=== PATIENT | male | born 1955 | race Caucasian/White ===

== ENCOUNTER → 2017-12-21 10:08 | Outpatient (CLI) | payer OTHER, SELFPAY ==
[2017-12-21 12:22] LABS: Protein (Total) Urine Random 7 mg/dL (0-12); Protein Creatinine Ratio Urine 0.03 GRAM/24H
[2017-12-22 12:51] LABS: Parathyroid Hormone Int 25 pg/mL (14-64)
== END ==
PROVIDERS: Family Provider Family Medicine; PCP Family Medicine; Visit Provider Student in an Organized Health Care Education/Training Program
DX: D64.9 Anemia, unspecified (principal); N25.81 Secondary hyperparathyroidism of renal origin; R80.9 Proteinuria, unspecified
CPT/HCPCS: 36415; 82570; 83970; 84156; 85014; 85018

== ENCOUNTER 2018-03-24 10:26 | Emergency (ER) | payer OTHER, SELFPAY ==
[2018-03-24 10:31] VITALS: BP 170/98; PULSE 71; RESP 20; TEMP 36.5; O2SAT 100; BMI 31.9
--- NOTE | 2018-03-24 11:04 | ED_ITS ---
HPI - Back Pain/Injury General Chief Complaint: Back Pain/Injury Stated Complaint: POSSIBLE BULGING DISC Time Seen by Provider: 03/24/18 11:04 Source: patient and family Mode of arrival: ambulatory Limitations: no limitations History of Present Illness HPI Narrative: Patient states he did some lifting and twisting several days ago , and that his right lower back has become increasingly painful since. Patient states it hurts to stand up and also to sit down. He states the best position is if he is lying on his stomach, but that also still hurts. Patient denies any distinct injury otherwise. He has a longstanding history of chronic low back pain, and had MRI some years ago, but does not know what the results were. He is a patient Dr. Tiffany Hendrix. Patient denies fevers; he denies urinary or fecal retention or incontinence. MD Complaint: back pain Onset (ago): day(s) Duration: constant Similar Symptoms Previously: Yes Location: lumbar spine ( Right sciatic area and above) Severity: moderate Quality: sharp and aching Radiation: right leg Severity scale (1-10): 10 Relieving factors: none Exacerbating factors: sitting upright and walking Context: turning/twisting ( pain came up over the couple of days afterward) Associated symptoms: numbness ( patient complains of tingling in the right foot , but otherwise no associated symptoms.) Treatments prior to arrival: other ( None) Related Data Home Medications Medication Instructions Recorded Confirmed aspirin 81 mg PO DAILY #0 12/27/10 03/24/18 multivitamin 1 tab PO QDAY #0 12/27/10 03/24/18 cinnamon bark 1 dose PO DIRECTED #0 08/03/17 03/24/18 glimepiride 2 mg tablet 4 mg PO QAM 12/15/17 03/24/18 gabapentin 300 mg capsule 300 mg PO DAILY cap 12/30/17 03/24/18 metoprolol tartrate 100 mg PO BID 03/24/18 03/24/18 verapamil 2 tab PO QDAY 03/24/18 03/24/18 Previous Rx's Medication Instructions Recorded metformin [Glucophage] 1,000 mg PO QDAY #90 tab 08/13/17 hydrochlorothiazide 25 mg tablet 25 mg PO QDAY #90 tab 12/15/17 clonidine HCl 0.1 mg tablet 0.1 mg PO BID #60 tab 01/22/18 insulin glargine (U-100) 100 15 unit SUBCUT HS #15 ml 03/22/18 unit/mL (3 mL) subcutaneous pen cyclobenzaprine 10 mg PO TID PRN #10 tab 03/24/18 hydrocodone-acetaminophen 2 tab PO Q6-8H PRN #14 tab 03/24/18 Allergies Allergy/AdvReac Type Severity Reaction Status Date / Time No Known Drug Allergies Allergy Verified 03/24/18 12:01 Review of Systems Review of Systems All systems reviewed & are unremarkable except as noted in HPI and below Constitutional Denies chills, Denies fever(s), Denies lethargy and Denies weakness Eyes Denies change in vision, Denies eye discharge, Denies irritation and Denies loss of vision ENT Ears, Nose, Mouth, and Throat: Denies change in voice, Denies neck pain and Denies sore throat Cardiovascular Denies chest pain, Denies irregular heart rhythm, Denies lightheadedness, Denies palpitations, Denies dyspnea, Denies dyspnea on exertion and Denies orthopnea Respiratory Denies cough, Denies dyspnea, Denies dyspnea on exertion and Denies wheezing Gastrointestinal Gastrointestinal: Denies abdominal pain, Denies change in bowel habits, Denies diarrhea, Denies nausea and Denies vomiting Genitourinary Denies hematuria, Denies flank pain, Denies urinary incontinence and Denies urinary urgency Musculoskeletal Reports back pain, Denies neck pain and Reports numbness ( tingling right lower extremity) Integumentary/Breasts Denies pruritus, Denies erythema, Denies rash and Denies wounds Neurologic Denies confusion, Denies loss of vision, Reports numbness ( tingling right lower extremity) and Denies weakness Psychiatric Denies anxiety, Denies confusion, Denies depression, Denies homicidal ideation and Denies suicidal ideation Endocrine Denies palpitations Hematologic/Lymphatic Denies easy bruising Allergic/Immunologic Denies wheezing FORMERLY [facility], [facility] Medical History Diabetes (Chronic Unknown) Hyperlipemia (Chronic Unknown) Hypertension (Chronic Unknown) Low back pain (Chronic Unknown) Obstructive sleep apnea (Chronic Unknown) Peripheral neuropathy (Chronic Unknown) Presence of artificial eye (Chronic Unknown) Restless leg syndrome (Chronic Unknown) Colon polyps (Resolved Unknown) Skin cancer (Resolved Unknown) Surgical History No pertinent past surgical history (Acute) Family History Father No problems noted. Mother No problems noted. Social History Smoking Status: Former smoker Tobacco: How many years used: 30 alcohol intake: never substance use type: does not use Exam Initial Vital Signs Initial Vital Signs: Vital Signs Temperature 97.7 F 03/24/18 10:31 Pulse Rate 71 03/24/18 10:31 Respiratory Rate 20 03/24/18 10:31 Blood Pressure 170/98 H 03/24/18 10:31 Pulse Oximetry 100 03/24/18 10:31 Const General: cooperative and well developed Nutritional Appearance: well nourished Orientation: alert, awake, oriented x3 and not confused HENMT Head: normocephalic and atraumatic Ears: external ears normal and TM's normal bilaterally Nose: external nose normal and No nasal discharge Face and sinus: sinuses nontender, face symmetric, no sinus tenderness and No dry mucous membranes Mouth: oral mucosae normal and moist mucous membranes Teeth and gingiva: dentition normal Throat: tonsils normal and uvula midline Eyes General: appearance normal, both eyes and all related structures Eyelids: eyelids normal Conjunctivae: conjunctivae normal Sclera: sclerae normal Pupils: PERRL EOM: EOM intact bilaterally Neck Neck: normal visual inspection, trachea midline, No lymphadenopathy, No midline deformity and No JVD Lymphatic: No lymphedema Chest Chest: normal inspection of the chest Resp Effort & Inspection: normal respiratory effort, able to speak in complete sentences, no respiratory distress and no use of accessory muscles Auscultation: clear to auscultation bilaterally, no rales, no rhonchi and no wheezes Cardio Rate: regular rate Rhythm: regular rhythm Heart Sounds: no click, no gallops, no murmurs and no rubs Pulses: normal peripheral pulses GI Inspection: non-distended Palpation: soft, no hepatosplenomegaly, No guarding, No pulsatile mass and No tender Auscultation: normal bowel sounds Back/Spine/Pelvis Back: No CVA tenderness Cervical Spine: cervical ROM normal and No pain with cervical ROM Thoracic/Lumbar Spine: other ( patient has tenderness over his lumbar right paraspinal musculature. No vertebral tenderness or step-off.) Sacroiliac Joints: tender to palpation ( Mild tenderness) right and other Skin General: no rashes or lesions noted, No jaundice and No petechiae Neuro General: alert, oriented x3, gait normal and no focal motor deficits Speech: speech normal Extrem General: full ROM, no clubbing, cyanosis or edema, no pedal edema and no calf tenderness Psych Appearance: well kempt Mental Status: mental status grossly normal Attitude: cooperative Thought Content: normal and suicidality Judgment: judgment good Course Course Narrative: patient was treated symptomatically with IM Toradol and Dilaudid. X-rays of the lumbar spine were performed, and negative, except for L5-S1 DJD. I did discuss with him that most likely, the best diagnostic test would be an MRI, for which he does not meet emergent criteria, but can be ordered through his primary care physician. The patient was found to be feeling better after symptomatic treatment. While in the emergency department, he has telephoned his primary doctor's office, and they are in the process of setting him up for an MRI. We have discussed the usual indications for return. Orders Ordered: ED Orders 03/24/18 11:24 XR lumbar spine 2-3V Stat Discontinued Medications Hydromorphone HCl (Dilaudid) 2 mg IM NOW ONE Stop: 03/24/18 11:09 Last Admin: 03/24/18 11:16 Dose: 2 mg Ketorolac Tromethamine (Toradol) 60 mg IM NOW ONE Stop: 03/24/18 11:09 Last Admin: 03/24/18 11:15 Dose: 60 mg Oxycodone/Acetaminophen (Percocet 5/325) 1 tab PO NOW ONE Stop: 03/24/18 12:50 Last Admin: 03/24/18 12:57 Dose: 1 tab Vital Signs - 8 hr 03/24/18 13:16 Pulse Rate 53 L Respiratory Rate 18 Blood Pressure 156/104 H Pulse Oximetry 98 MDM - Back Pain/Injury Medical Records Attestation: I reviewed the patient's medical records. Imaging Data lumbar spine x-ray series: Attestation: I personally reviewed and interpreted this imaging study as follows: My impression: DJD, L5-S1. Radiologist's impression: PROCEDURE: XR LUMBAR SPINE 2-3V INDICATIONS: pain/injury TECHNIQUE: 3 views of the lumbar spine were acquired. COMPARISON: [facility], CR, L-SPINE 2-3 VIEWS, 03/29/2015, 10:43. FINDINGS: Bones: 5 [id number] vertebrae are present. There is normal bony alignment. No vertebral body compression fractures. No suspicious bony lesions. Mild foraminal narrowing at L5-S1, slightly progressive. Soft tissues: Overlying bowel gas pattern is normal. No suspicious soft tissue calcifications. IMPRESSION: Slowly progressive degenerative change at L5-S1 as above. Dictated by: Alejandra Traylor M.D. on 03/24/2018 at 11:09 Approved by: Alejandra Traylor M.D. on 03/24/2018 at 11:19 Discharge Plan Departure Patient Disposition: Home Clinical Impression: Back pain of lumbar region with sciatica, Degenerative joint disease (DJD) of lumbar spine Discharge Date/Time: 03/24/18 13:17 Interventions: ED Discharge Assessment Last Done: 03/24/18 13:16 Instructions: DI for Back Pain With Sciatica Prescriptions: New cyclobenzaprine 10 mg tablet 10 mg PO TID PRN (Reason: muscle spasm) Qty: 10 RF: 0 hydrocodone-acetaminophen 5-325 mg tablet 2 tab PO Q6-8H PRN (Reason: pain) Qty: 14 RF: 0 No Action gabapentin [Neurontin] 300 mg capsule 300 mg PO DAILY RF: 0 hydrochlorothiazide 25 mg tablet 25 mg PO QDAY Qty: 90 RF: 3 glimepiride 2 mg tablet 4 mg PO QAM RF: 0 clonidine HCl 0.1 mg tablet 0.1 mg PO BID Qty: 60 RF: 2 multivitamin Tablet 1 tab PO QDAY Qty: 0 RF: 0 aspirin 81 mg Tablet,Delayed Release (Dr/Ec) 81 mg PO DAILY Qty: 0 RF: 0 cinnamon bark 1 dose PO DIRECTED Qty: 0 RF: 0 metformin [Glucophage] 1,000 MG tablet 1,000 mg PO QDAY Qty: 90 RF: 1 insulin glargine [Basaglar KwikPen U-100 Insulin] 100 unit/mL (3 mL) insulin pen 15 unit SUBCUT HS Qty: 15 RF: 0 metoprolol tartrate 100 mg Tablet 100 mg PO BID RF: 0 verapamil 240 mg tablet extended release 2 tab PO QDAY RF: 0 Referrals: SimeonTiffany, [Primary Care Provider] - ( please follow up as soon as possible to schedule and discuss results of MRI.)
[2018-03-24] MEDS: KETOROLAC 60 MG/2 ML VIAL IM (11:15)
[2018-03-24] MEDS: HYDROMORPHONE 2 MG INJ IM (11:16)
--- NOTE | 2018-03-24 11:24 | DI.RAD.S_ITS ---
PROCEDURE: XR LUMBAR SPINE 2-3V INDICATIONS: pain/injury TECHNIQUE: 3 views of the lumbar spine were acquired. COMPARISON: [facility], , -SPINE 2-3 VIEWS, 03/29/2015, 10:43. FINDINGS: Bones: 5 [id number] vertebrae are present. There is normal bony alignment. No vertebral body compression fractures. No suspicious bony lesions. Mild foraminal narrowing at L5-S1, slightly progressive. Soft tissues: Overlying bowel gas pattern is normal. No suspicious soft tissue calcifications. IMPRESSION: Slowly progressive degenerative change at L5-S1 as above. Dictated by: Alejandra Traylor M.D. on 03/24/2018 at 11:09 Approved by: Alejandra Traylor M.D. on 03/24/2018 at 11:19
[2018-03-24 11:39] VITALS: BP 161/105; PULSE 75; RESP 16; O2SAT 98
[2018-03-24] MEDS: OXYCODONE/ACETAMINOPHEN 5/325 TABLET 1 TAB PO (12:57)
[2018-03-24 13:16] VITALS: BP 156/104; PULSE 53; RESP 18; O2SAT 98
== END 2018-03-24 13:17 | disposition home or self-care (01) ==
PROVIDERS: Emergency Provider Emergency Medicine; Family Provider Family Medicine; PCP Family Medicine
DX: M54.40 Lumbago with sciatica, unspecified side (principal); M47.816 Spondylosis without myelopathy or radiculopathy, lumbar region
CPT/HCPCS: 72100; 96372; 99282; 99283; J1170; J1885

== ENCOUNTER → 2018-04-14 14:07 | Outpatient (CLI) | payer OTHER, SELFPAY ==
--- NOTE | 2018-04-14 14:08 | DI.MRI.S_ITS ---
PROCEDURE: MR LUMBAR SPINE WO CON INDICATIONS: lumbar back pain with radiculopathy affecting right lower ex TECHNIQUE: Noncontrast sagittal T1 spin echo and T2 fast echo, sagittal STIR, axial T1 and T2 fast spin echo through the lumbar spine. In cases with scoliosis, additional coronal T2 fast spin echo may be performed. COMPARISON: [facility], CR, XR LUMBAR SPINE 2-3V, 03/24/2018, 11:00. FINDINGS: Image quality: Excellent. Alignment and Curvature: 5 lumbar type vertebral bodies are present by plain film. Alignment is normal. Bone Marrow: Marrow is of normal overall signal. No acute vertebral body compression fractures. Mild reactive signal within the endplates adjacent to the the L3-L4, L4-L5, and L5-S1 intervertebral discs is present. Spinal Cord: Conus medullaris terminates at the T12-L1 disc space level. Visualized cord demonstrates normal signal and size. Paraspinous Soft Tissues: No paravertebral masses. L1-L2: Mild disc I. loss and desiccation. Mild diffuse disc bulge with superimposed broad-based central protrusion. Mild facet and ligamentum flavum hypertrophy bilaterally. Mild canal stenosis. No foraminal stenosis. L2-L3: Mild disc desiccation. Mild bilateral facet hypertrophy. Mild canal stenosis. Mild bilateral foraminal stenosis. L3-L4: Mild disc height loss and desiccation. Mild diffuse disc bulge with superimposed right paracentral disc extrusion which extends inferiorly within the right anterior epidural space. Mild bilateral facet hypertrophy. Mild epidural lipomatosis. There is moderate canal stenosis. There is mild bilateral foraminal stenosis. There is right L4 nerve root impingement within the lateral recess. L4-L5: Mild disc height loss. Moderate disc desiccation. Mild diffuse disc bulge with superimposed right paracentral disc protrusion. Bilateral facet hypertrophy. Moderate canal stenosis. Mild bilateral foraminal stenosis. L5-S1: Moderate disc height loss and desiccation. Mild diffuse disc bulge with superimposed broad-based left posterolateral broad-based protrusion. Mild bilateral facet hypertrophy. Mild canal stenosis. Mild right foraminal stenosis. Moderate left foraminal stenosis. IMPRESSION: 1. Multilevel degenerative disc and facet disease, as well as epidural lipomatosis. 2. Multilevel canal stenoses, worst at L3-L4 and L4-L5 where there are moderate canal stenoses present. 3. Right L4 nerve root impingement at the L3-L4 disc space level. Recommend correlation with clinical symptoms to ascertain relevant of this finding. 4. Multilevel foraminal stenoses, worst on the left at L5-S1, where there are moderate foraminal stenoses present. Dictated by: Loyd Flores M.D. on 04/14/2018 at 15:51 Approved by: Loyd Flores M.D. on 04/14/2018 at 15:55
== END ==
PROVIDERS: Family Provider Family Medicine; PCP Family Medicine; Referring Provider Orthopaedic Surgery; Visit Provider Family Medicine
DX: M47.26 Other spondylosis with radiculopathy, lumbar region (principal); M51.16 Intervertebral disc disorders with radiculopathy, lumbar region; M51.17 Intervertebral disc disorders with radiculopathy, lumbosacral region; M48.061 Spinal stenosis, lumbar region without neurogenic claudication; M48.07 Spinal stenosis, lumbosacral region; E88.2 Lipomatosis, not elsewhere classified
CPT/HCPCS: 72148

== ENCOUNTER → 2018-06-21 06:55 | Outpatient (CLI) | payer OTHER, SELFPAY ==
[2018-06-21 08:21] LABS: Hemoglobin A1C% w Est Avg Glu 5.3 % (4.0-6.0)
[2018-06-21 08:29] LABS: Alanine Aminotransferase 35 IU/L (21-72); Albumin 4.1 g/dL (3.5-5.0); Albumin Globulin Ratio 1.4 (1.0-2.8); Alkaline Phosphatase 74 U/L (38-126); Aspartate Aminotransferase 30 IU/L (17-59); Bilirubin Total 0.8 mg/dL (0.2-1.3); Blood Urea Nitrogen 18 mg/dL (9-20); Calcium 9.9 mg/dL (8.4-10.2); Carbon Dioxide 30 mmol/L (22-32); Chloride 104 mmol/L (98-107); Cholesterol 169 mg/dL (140-199); Estimated Glomerular Filt Rate > 60.0 mL/min (>60); Globulin 2.9 g/dL (1.7-4.1); Glucose 124 mg/dL (80-110); HDL Cholesterol 33 mg/dL (40-60); HEMOLYSIS < 15 (0-50); LDL Cholesterol Calculated 118 mg/dL (<100); Potassium 5.1 mmol/L (3.4-5.1); Sodium 145 mmol/L (137-145); Triglycerides 91 mg/dL (35-150)
== END ==
PROVIDERS: Family Provider Family Medicine; PCP Family Medicine; Visit Provider Family Medicine
DX: E11.65 Type 2 diabetes mellitus with hyperglycemia (principal); I10 Essential (primary) hypertension
CPT/HCPCS: 36415; 80053; 80061; 83036

== ENCOUNTER → 2018-09-13 14:30 | Outpatient (CLI) | payer OTHER, SELFPAY ==
[2018-09-13 18:19] LABS: Alanine Aminotransferase 43 IU/L (21-72); Albumin 4.4 g/dL (3.5-5.0); Albumin Globulin Ratio 1.6 (1.0-2.8); Alkaline Phosphatase 72 U/L (38-126); Aspartate Aminotransferase 30 IU/L (17-59); BUN Creatinine Ratio 17.3 (6-22); Bilirubin Total 0.6 mg/dL (0.2-1.3); Blood Urea Nitrogen 19 mg/dL (9-20); Calcium 10.1 mg/dL (8.4-10.2); Carbon Dioxide 28 mmol/L (22-32); Chloride 100 mmol/L (98-107); Estimated Glomerular Filt Rate > 60.0 mL/min (>60); Globulin 2.7 g/dL (1.7-4.1); Glucose 78 mg/dL (80-110); HEMOLYSIS < 15 (0-50); Potassium 4.4 mmol/L (3.4-5.1); Sodium 140 mmol/L (137-145); Total Protein 7.1 g/dL (6.3-8.2)
== END ==
PROVIDERS: PCP Family Medicine; Visit Provider Family Medicine
DX: E11.65 Type 2 diabetes mellitus with hyperglycemia (principal)
CPT/HCPCS: 36415; 80053; 83036

== ENCOUNTER → 2018-11-23 12:29 | Outpatient (CLI) | payer OTHER, SELFPAY ==
[2018-11-23 13:21] LABS: Hematocrit 46.3 % (41-53); Hemoglobin 16.5 g/dL (13.5-17.5)
[2018-11-23 13:58] LABS: BUN Creatinine Ratio 21.1 (6-22); Blood Urea Nitrogen 19 mg/dL (9-20); Calcium 10.6 mg/dL (8.4-10.2); Carbon Dioxide 30 mmol/L (22-32); Chloride 99 mmol/L (98-107); Estimated Glomerular Filt Rate > 60.0 mL/min (>60); Glucose 105 mg/dL (80-110); HEMOLYSIS < 15 (0-50); Potassium 4.8 mmol/L (3.4-5.1); Sodium 139 mmol/L (137-145)
[2018-11-23 14:42] LABS: Creatinine Urine Random 202.2 mg/dL
[2018-11-23 15:01] LABS: Protein (Total) Urine Random < 5 mg/dL (0-12); Protein Creatinine Ratio Urine 0.02 GRAM/24H
[2018-11-25 14:40] LABS: Parathyroid Hormone Int 28 pg/mL (14-64)
== END ==
PROVIDERS: Family Provider Family Medicine; PCP Family Medicine; Visit Provider Student in an Organized Health Care Education/Training Program
DX: N05.9 Unspecified nephritic syndrome with unspecified morphologic changes (principal); D64.9 Anemia, unspecified; N25.81 Secondary hyperparathyroidism of renal origin; R80.9 Proteinuria, unspecified
CPT/HCPCS: 36415; 80048; 82570; 83970; 84156; 85014; 85018

== ENCOUNTER → 2018-12-31 16:21 | Outpatient (CLI) | payer OTHER, SELFPAY | PROVIDERS: Family Provider Family Medicine; PCP Family Medicine; Visit Provider Student in an Organized Health Care Education/Training Program | DX: E83.52 Hypercalcemia (principal) | CPT/HCPCS: 36415; 82310 ==

== ENCOUNTER → 2019-03-03 14:55 | Outpatient (CLI) | payer OTHER, SELFPAY ==
[2019-03-03 15:54] LABS: Alanine Aminotransferase 43 IU/L (21-72); Albumin 4.1 g/dL (3.5-5.0); Albumin Globulin Ratio 1.6 (1.0-2.8); Alkaline Phosphatase 71 U/L (38-126); Aspartate Aminotransferase 33 IU/L (17-59); BUN Creatinine Ratio 18.2 (6-22); Blood Urea Nitrogen 20 mg/dL (9-20); Carbon Dioxide 25 mmol/L (22-32); Chloride 103 mmol/L (98-107); Estimated Glomerular Filt Rate > 60.0 mL/min (>60); Globulin 2.5 g/dL (1.7-4.1); Glucose 96 mg/dL (80-110); HEMOLYSIS 25 (0-50); Potassium 4.6 mmol/L (3.4-5.1); Sodium 138 mmol/L (137-145); Total Protein 6.6 g/dL (6.3-8.2)
== END ==
PROVIDERS: Family Provider Family Medicine; PCP Family Medicine; Visit Provider Hospitalist
DX: E11.65 Type 2 diabetes mellitus with hyperglycemia (principal)
CPT/HCPCS: 36415; 80053; 83036

== ENCOUNTER → 2019-03-31 15:52 | Outpatient (CLI) | payer OTHER, SELFPAY ==
[2019-03-31 17:10] LABS: BUN Creatinine Ratio 23.3 (6-22); Blood Urea Nitrogen 21 mg/dL (9-20); Calcium 9.7 mg/dL (8.4-10.2); Carbon Dioxide 29 mmol/L (22-32); Chloride 103 mmol/L (98-107); Estimated Glomerular Filt Rate > 60.0 mL/min (>60); Glucose 85 mg/dL (80-110); HEMOLYSIS < 15 (0-50); Potassium 4.5 mmol/L (3.4-5.1); Sodium 139 mmol/L (137-145)
== END ==
PROVIDERS: Family Provider Family Medicine; PCP Family Medicine; Visit Provider Hospitalist
DX: I10 Essential (primary) hypertension (principal)
CPT/HCPCS: 36415; 80048

== ENCOUNTER → 2019-07-23 09:16 | Outpatient (CLI) | payer OTHER, SELFPAY ==
[2019-07-23 09:57] LABS: Alanine Aminotransferase 63 IU/L (<50); Albumin 4.1 g/dL (3.5-5.0); Albumin Globulin Ratio 1.5 (1.0-2.8); Alkaline Phosphatase 69 U/L (38-126); Aspartate Aminotransferase 45 IU/L (17-59); Bilirubin Total 0.9 mg/dL (0.2-1.3); Blood Urea Nitrogen 21 mg/dL (9-20); Calcium 9.8 mg/dL (8.4-10.2); Carbon Dioxide 30 mmol/L (22-32); Chloride 104 mmol/L (98-107); Cholesterol 189 mg/dL (140-199); Estimated Glomerular Filt Rate > 60.0 mL/min (>60); Globulin 2.7 g/dL (1.7-4.1); Glucose 150 mg/dL (80-110); HDL Cholesterol 30 mg/dL (40-60); HEMOLYSIS < 15 (0-50); LDL Cholesterol Calculated 119 mg/dL (<100); Potassium 4.6 mmol/L (3.4-5.1); Sodium 142 mmol/L (137-145); Total Protein 6.8 g/dL (6.3-8.2); Triglycerides 202 mg/dL (35-150)
[2019-07-23 10:03] LABS: Add Manual Diff / Slide Review NO; Basophils Absolute Auto 100 /uL (0-100); Basophils Percent Auto 0.9 % (0-2); Eosinophils Absolute Auto 200 /uL (0-450); Eosinophils Percent Auto 2.5 % (2-4); Hematocrit 45.4 % (41-53); Hemoglobin 16.4 g/dL (13.5-17.5); Lymphocytes Absolute Auto 2800 /uL (1100-4500); Lymphocytes Percent Auto 38.6 % (25-40); Mean Corpuscular HGB Conc 36.2 % (30-36); Mean Corpuscular Hemoglobin 33.6 PG (26-34); Mean Corpuscular Volume 92.8 fL (80-100); Monocytes Absolute Auto 700 /uL (0-900); Monocytes Percent Auto 9.2 % (3-14); Neutrophils Absolute Auto 3600 /uL (1500-7000); Neutrophils Percent Auto 48.8 % (50-75); Platelet Count 185 X10^3/uL (150-400); Red Blood Cell Count 4.89 X10^6/uL (4.5-5.9); Red Cell Distribution Width 13.1 % (11.6-14.8); White Blood Cell Count 7.3 X10^3/uL (4.5-11.0)
[2019-07-23 10:23] LABS: Prostate Specific Antigen 0.945 ng/mL (0.10-4.00)
[2019-07-23 10:24] LABS: Thyroid Stimulating Hormone 1.09 uIU/mL (0.47-4.68)
[2019-07-28 12:16] LABS: Hemoglobin A1C% w Est Avg Glu 5.4 % (4.0-6.0)
== END ==
PROVIDERS: Family Provider Family Medicine; PCP Family Medicine; Visit Provider Family Medicine
DX: Z12.5 Encounter for screening for malignant neoplasm of prostate (principal); E11.65 Type 2 diabetes mellitus with hyperglycemia; I10 Essential (primary) hypertension
CPT/HCPCS: 36415; 80053; 80061; 83036; 84153; 84443; 85025

== ENCOUNTER → 2019-09-15 08:40 | Outpatient (CLI) | payer OTHER, SELFPAY ==
[2019-09-15 09:24] LABS: Hemoglobin A1C% w Est Avg Glu 5.7 % (4.0-6.0)
[2019-09-15 09:25] LABS: Alanine Aminotransferase 70 IU/L (<50); Albumin 4.1 g/dL (3.5-5.0); Albumin Globulin Ratio 1.4 (1.0-2.8); Alkaline Phosphatase 68 U/L (38-126); Aspartate Aminotransferase 55 IU/L (17-59); Bilirubin Total 1.3 mg/dL (0.2-1.3); Blood Urea Nitrogen 21 mg/dL (9-20); Calcium 9.8 mg/dL (8.4-10.2); Carbon Dioxide 30 mmol/L (22-32); Chloride 104 mmol/L (98-107); Estimated Glomerular Filt Rate > 60.0 mL/min (>60); Globulin 2.9 g/dL (1.7-4.1); Glucose 137 mg/dL (80-110); HEMOLYSIS 16 (0-50); Potassium 5.1 mmol/L (3.4-5.1); Sodium 140 mmol/L (137-145)
[2019-09-15 10:40] LABS: Creatinine Urine Random 338.4 mg/dL
[2019-09-15 10:45] LABS: Microalbumi Creatinin Ratio Ur 12.7 ug/mg CR (<30); Microalbumin Urine Random 4.3 mg/dL (0-1.6)
== END ==
PROVIDERS: Family Provider Family Medicine; PCP Family Medicine; Referring Provider Family Medicine; Visit Provider Family Medicine
DX: E11.65 Type 2 diabetes mellitus with hyperglycemia (principal); I10 Essential (primary) hypertension
CPT/HCPCS: 36415; 80053; 82043; 82570; 83036

== ENCOUNTER → 2019-12-28 08:57 | Outpatient (CLI) | payer OTHER, SELFPAY ==
--- NOTE | 2019-12-28 08:59 | DI.RAD.S_ITS ---
PROCEDURE: XR KNEE RT 3V INDICATIONS: Right knee injury TECHNIQUE: 3 views of the knee were acquired. COMPARISON: None. FINDINGS: Bones: No fractures or dislocations. No suspicious bony lesions. The femorotibial joint spaces are relatively well-preserved. On the sunrise view, there is moderate lateral patellofemoral joint space narrowing seen. Osteophyte formation can be seen along the margins of the patella. Soft tissues: No joint effusion. No suspicious soft tissue calcifications. IMPRESSION: Osteoarthritic degenerative changes are seen, which are most prominent involving the medial patellofemoral compartment. Dictated by: Quincy Nogueira M.D. on 12/28/2019 at 8:27 Approved by: Quincy Nogueira M.D. on 12/28/2019 at 8:28
== END ==
PROVIDERS: Family Provider Family Medicine; Referring Provider Family Medicine; Visit Provider Family Medicine
DX: S89.91XA Unspecified injury of right lower leg, initial encounter (principal); M25.561 Pain in right knee; X58.XXXA Exposure to other specified factors, initial encounter
CPT/HCPCS: 73562

== ENCOUNTER → 2020-03-29 15:31 | Outpatient (CLI) | payer OTHER, SELFPAY ==
[2020-03-29 16:09] LABS: Hematocrit 43.1 % (41-53); Hemoglobin 15.3 g/dL (13.5-17.5)
[2020-03-29 17:06] LABS: Blood Urea Nitrogen 24 mg/dL (9-20); Calcium 9.6 mg/dL (8.4-10.2); Carbon Dioxide 30 mmol/L (22-32); Chloride 100 mmol/L (98-107); Estimated Glomerular Filt Rate > 60.0 mL/min (>60); Glucose 90 mg/dL (80-110); HEMOLYSIS < 15 (0-50); Potassium 4.3 mmol/L (3.4-5.1); Sodium 137 mmol/L (137-145)
[2020-03-29 17:07] LABS: Creatinine Urine Random 63.9 mg/dL; Protein (Total) Urine Random 8 mg/dL (0-12); Protein Creatinine Ratio Urine 0.12 GRAM/24H
[2020-03-30 07:59] LABS: Parathyroid Hormone Int 39 pg/mL (15-65)
== END ==
PROVIDERS: Family Provider Family Medicine; PCP Family Medicine; Referring Provider Student in an Organized Health Care Education/Training Program; Visit Provider Student in an Organized Health Care Education/Training Program
DX: N05.9 Unspecified nephritic syndrome with unspecified morphologic changes (principal); D64.9 Anemia, unspecified; N25.81 Secondary hyperparathyroidism of renal origin; R80.9 Proteinuria, unspecified
CPT/HCPCS: 36415; 80048; 82570; 83970; 84156; 85014; 85018

== ENCOUNTER → 2020-09-27 09:51 | Outpatient (CLI) | payer OTHER, SELFPAY ==
[2020-09-27 10:19] LABS: Add Manual Diff / Slide Review NO; Basophils Absolute Auto 100 /uL (0-100); Basophils Percent Auto 1.1 % (0-2); Eosinophils Absolute Auto 200 /uL (0-450); Eosinophils Percent Auto 2.3 % (2-4); Hematocrit 46.2 % (41-53); Hemoglobin 16.2 g/dL (13.5-17.5); Lymphocytes Absolute Auto 2600 /uL (1100-4500); Lymphocytes Percent Auto 37.9 % (25-40); Mean Corpuscular HGB Conc 35.1 % (30-36); Mean Corpuscular Hemoglobin 32.7 PG (26-34); Mean Corpuscular Volume 93.3 fL (80-100); Monocytes Absolute Auto 700 /uL (0-900); Monocytes Percent Auto 10.4 % (3-14); Neutrophils Absolute Auto 3400 /uL (1500-7000); Neutrophils Percent Auto 48.3 % (50-75); Platelet Count 179 X10^3/uL (150-400); Red Blood Cell Count 4.95 X10^6/uL (4.5-5.9); Red Cell Distribution Width 12.9 % (11.6-14.8)
[2020-09-27 10:55] LABS: Alanine Aminotransferase 70 IU/L (<50); Albumin 3.9 g/dL (3.5-5.0); Albumin Globulin Ratio 1.5 (1.0-2.8); Alkaline Phosphatase 77 U/L (38-126); Aspartate Aminotransferase 47 IU/L (17-59); BUN Creatinine Ratio 21.1 (6-22); Bilirubin Total 0.7 mg/dL (0.2-1.3); Blood Urea Nitrogen 19 mg/dL (9-20); Calcium 9.3 mg/dL (8.4-10.2); Carbon Dioxide 28 mmol/L (22-32); Chloride 103 mmol/L (98-107); Cholesterol 190 mg/dL (140-199); Estimated Glomerular Filt Rate > 60.0 mL/min (>60); Globulin 2.6 g/dL (1.7-4.1); Glucose 146 mg/dL (80-110); HDL Cholesterol 38 mg/dL (40-60); HEMOLYSIS < 15 (0-50); LDL Cholesterol Calculated 109 mg/dL (<100); Potassium 5.3 mmol/L (3.4-5.1); Sodium 137 mmol/L (137-145); Total Protein 6.5 g/dL (6.3-8.2); Triglycerides 214 mg/dL (35-150)
[2020-09-27 11:25] LABS: Prostate Specific Antigen 0.853 ng/mL (0.10-4.00)
== END ==
PROVIDERS: Family Provider Family Medicine; PCP Family Medicine; Referring Provider Family Medicine; Visit Provider Family Medicine
DX: E11.65 Type 2 diabetes mellitus with hyperglycemia (principal); I10 Essential (primary) hypertension; E11.610 Type 2 diabetes mellitus with diabetic neuropathic arthropathy; Z12.5 Encounter for screening for malignant neoplasm of prostate
CPT/HCPCS: 36415; 80053; 80061; 84153; 85025

== ENCOUNTER → 2020-10-05 08:51 | Outpatient (CLI) | payer OTHER, SELFPAY ==
[2020-10-05 09:41] LABS: Hemoglobin A1C% w Est Avg Glu 6.3 % (4.0-6.0)
== END ==
PROVIDERS: Family Provider Family Medicine; PCP Family Medicine; Referring Provider Family Medicine; Visit Provider Family Medicine
DX: E11.65 Type 2 diabetes mellitus with hyperglycemia (principal); I10 Essential (primary) hypertension; Z72.0 Tobacco use
CPT/HCPCS: 36415; 83036

== ENCOUNTER → 2020-10-18 07:08 | Outpatient (CLI) | payer OTHER, SELFPAY | PROVIDERS: Family Provider Family Medicine; PCP Family Medicine; Referring Provider Family Medicine; Visit Provider Family Medicine | DX: I15.9 Secondary hypertension, unspecified (principal); E11.65 Type 2 diabetes mellitus with hyperglycemia; I10 Essential (primary) hypertension; Z72.0 Tobacco use; Z53.8 Procedure and treatment not carried out for other reasons ==

== ENCOUNTER → 2020-12-12 07:55 | Outpatient (CLI) | payer OTHER, SELFPAY ==
--- NOTE | 2020-12-12 | DI.ECHO.S_ITS ---
[facility]+ [facility] +---------+ : : [address] [place] : : : : [id number] : : : : Phone: [phone]+ Echocardiogram Report + + :Name: SONU ROMAN Study Date: 12/12/2020 Height: 69 in : :[facility] ReadingLocation: Weight: 220 lb : : Gender: Male BSA: 2.2 m2 : :: 1955 Age: 65 yrs BP: 152/98 mmHg: :Reason For Study: MURMUR : :Ordering Physician: BALAJI, : :GAB Performed By: Shahida Sharma : :Referring: GAB ALBERTO : + + Interpretation Summary 1) Mildly increased left ventricular thicknes, normal size, normal wall motion, and normal systolic function (EF 65-70%). 2) Normal right ventricular size and function. 3) There is mild aortic valve sclerosis without stenosis or regurgitation. 4) Hypertension present during the study (BP 152/98mmHg). Procedure: A two-dimensional transthoracic echocardiogram with color flow and Doppler was performed. The study quality was technically adequate. Comparison is made with the echocardiogram of 11/02/2014. The patient was in sinus bradycardia with heart rates between 49-61 bpm during the exam. Left Ventricle: The left ventricle is normal in size. There is mild concentric left ventricular hypertrophy. The left ventricular outflow velocity with valsalva is 2.48m/s. The ejection fraction is estimated to be 65-70%. Left ventricular systolic function appears normal without focal wall motion abnormalities. Diastolic parameters suggest a relaxation abnormality of the left ventricle, consistent with probable normal filling pressures. Right Ventricle: The right ventricle is normal in size and function. Atria: The left atrium is moderately dilated. Right atrial size is normal. There is no Doppler evidence for an interatrial shunt. Mitral Valve: There is systolic anterior motion of the chordal apparatus. The mitral valve is grossly normal. There is trace mitral regurgitation. Aortic Valve: The aortic valve opens well. There is discrete nodular thickening of the non- coronary cusp. There is mild aortic valve sclerosis. There is no aortic valve stenosis. No aortic regurgitation is present. Tricuspid Valve: The tricuspid valve is normal in structure and function. There is trace tricuspid regurgitation. Pulmonary artery pressures cannot be estimated because of the lack of a measurable TR jet velocity but the IVC suggests a CVP of around 3 mmHg. Pulmonic Valve: The pulmonic valve is not well seen, but is grossly normal. There is no pulmonic valvular regurgitation. Great Vessels: The aortic root is normal size. The ascending aorta is at the upper limits of normal in size. The IVC is of normal diameter and collapses greater than 50% with a sniff. This suggests a low right atrial pressure of 3 mm Hg. Pericardium/ Pleura There is no pericardial effusion. There is no pleural effusion. MMode/2D Measurements & Calculations LVIDd: 4.7 cm LVOT diam: 1.9 cm LVIDs: 3.1 cm Ao root diam: 3.2 cm FS: 34.0 % asc Aorta Diam: 3.5 cm EPSS: 0.16 cm IVSd: 1.3 cm LVPWd: 1.1 cm LV rico. diameter/BSA (cm/m^2): 2.2 LV sys. diameter/BSA (cm/m^2): 1.5 LA A2 area: 25.3 cm2 RA long axis: 5.6 cm LA A4 area: 19.0 cm2 RA area: 17.7 cm2 LA length (vol): 5.0 cm RA vol: 47.9 ml LA vol: 81.2 ml RA : 22.3 ml/m2 LA vol index: 37.8 ml/m2 IVC diam: 1.4 cm RVD1 (basal): 3.4 cm TAPSE: 2.1 cm Doppler Measurements & Calculations Ao V2 max: 187.1 cm/sec LVOT Max Sam: 167.3 cm/sec Ao V2 mean: 126.0 cm/sec LV V1 max P.2 mmHg Ao max P.0 mmHg LV V1 VTI: 34.5 cm Ao mean P.1 mmHg CHAI(I,D): 2.7 cm2 Ao V2 VTI: 36.2 cm CHAI(V,D): 2.5 cm2 sev ratio: 0.95 CHAI indexed to BSA (cm^2/m^2): 1.2 MV E max sam: 50.3 cm/sec PA pr(Accel): 25.9 mmHg MV A max sam: 49.8 cm/sec MV E/A: 1.0 Med Peak E' Sam: 5.7 cm/sec E/E' med: 8.8 Lat Peak E' Sam: 8.1 cm/sec E/E' lat: 6.2 E/e' average: 7.5 MV dec time: 0.23 sec SV(LVOT): 96.9 ml Reading Physician:10:47 AM
== END ==
PROVIDERS: Family Provider Family Medicine; PCP Family Medicine; Referring Provider Internal Medicine Cardiovascular Disease; Visit Provider Internal Medicine Cardiovascular Disease
DX: R01.1 Cardiac murmur, unspecified (principal)
CPT/HCPCS: 93306

== ENCOUNTER → 2020-12-17 08:49 | Outpatient (CLI) | payer OTHER, SELFPAY ==
[2020-12-17 10:05] LABS: Hemoglobin A1C% w Est Avg Glu 6.3 % (4.0-6.0)
[2020-12-17 10:39] LABS: Alanine Aminotransferase 79 IU/L (<50); Albumin 3.8 g/dL (3.5-5.0); Albumin Globulin Ratio 1.4 (1.0-2.8); Alkaline Phosphatase 91 U/L (38-126); Aspartate Aminotransferase 75 IU/L (17-59); BUN Creatinine Ratio 19.8 (6-22); Blood Urea Nitrogen 17 mg/dL (9-20); Calcium 9.5 mg/dL (8.4-10.2); Carbon Dioxide 23 mmol/L (22-32); Chloride 105 mmol/L (98-107); Cholesterol 191 mg/dL (140-199); Estimated Glomerular Filt Rate > 60.0 mL/min (>60); Globulin 2.8 g/dL (1.7-4.1); Glucose 138 mg/dL (80-110); HDL Cholesterol 37 mg/dL (40-60); HEMOLYSIS < 15 (0-50); LDL Cholesterol Calculated 97 mg/dL (<100); Potassium 4.5 mmol/L (3.4-5.1); Sodium 137 mmol/L (137-145); Total Protein 6.6 g/dL (6.3-8.2); Triglycerides 284 mg/dL (35-150)
[2020-12-18 16:52] LABS: SARS CoV19 IgG Negative (Negative)
== END ==
PROVIDERS: Family Provider Family Medicine; PCP Family Medicine; Referring Provider Family Medicine; Visit Provider Family Medicine
DX: E11.65 Type 2 diabetes mellitus with hyperglycemia (principal); I10 Essential (primary) hypertension; Z20.822 Contact with and (suspected) exposure to COVID-19
CPT/HCPCS: 36415; 80053; 80061; 83036; 86769

== ENCOUNTER → 2021-02-19 13:15 | Outpatient (CLI) | payer OTHER, SELFPAY ==
[2021-02-19 14:05] LABS: COVID19 -Nasal RAPID Negative (Negative)
== END ==
PROVIDERS: Family Provider Family Medicine; PCP Family Medicine; Visit Provider Nurse Practitioner
DX: R52 Pain, unspecified (principal); R53.83 Other fatigue; Z20.822 Contact with and (suspected) exposure to COVID-19
CPT/HCPCS: 87635

== ENCOUNTER → 2021-02-22 15:52 | Outpatient (CLI) | payer OTHER, SELFPAY ==
[2021-02-22 16:45] LABS: COVID19 -Nasal RAPID Negative (Negative)
== END ==
PROVIDERS: Family Provider Family Medicine; PCP Family Medicine; Visit Provider Physician Assistant
DX: Z20.822 Contact with and (suspected) exposure to COVID-19 (principal)
CPT/HCPCS: 87635

== ENCOUNTER → 2021-02-22 16:30 | Outpatient (CLI) | payer OTHER, SELFPAY ==
--- NOTE | 2021-02-22 16:33 | DI.RAD.S_ITS ---
PROCEDURE: XR CHEST 2V INDICATIONS: fatigue, fever, cough TECHNIQUE: 2 views of the chest were acquired. COMPARISON: None. FINDINGS: Surgical changes and devices: None. Lungs and pleura: Focal dense consolidation, right middle lobe. Lungs otherwise clear. No pleural effusions or pneumothorax. Mediastinum: Mediastinal contours are normal. Heart size is normal. Bones and chest wall: No suspicious bony abnormalities. Soft tissues appear unremarkable. IMPRESSION: Pneumonia, right middle lobe. Comment: Progress films are recommended until clear. Dictated by: Ottoniel Bertrand M.D. on 02/22/2021 at 16:49 Approved by: Ottoniel Bertrand M.D. on 02/22/2021 at 16:49
== END ==
PROVIDERS: Family Provider Family Medicine; PCP Family Medicine; Referring Provider Physician Assistant; Visit Provider Physician Assistant
DX: J18.9 Pneumonia, unspecified organism (principal); R50.9 Fever, unspecified; R53.83 Other fatigue; R05 Cough; Z20.822 Contact with and (suspected) exposure to COVID-19
CPT/HCPCS: 71046; 87635

== ENCOUNTER → 2021-06-01 08:57 | Outpatient (CLI) | payer OTHER, SELFPAY ==
--- NOTE | 2021-06-01 08:58 | DI.RAD.S_ITS ---
PROCEDURE: XR HAND RT MIN 3V INDICATIONS: Progressive deformity loss of function right 5th digit TECHNIQUE: 4 views of the hand(s) acquired. COMPARISON: [facility], , HAND 3V LEFT, 09/05/2016, 10:50. FINDINGS: Bones: No fractures or dislocations. Carpal bones are normally aligned. No suspicious bony lesions. There is persistent flexion seen involving the proximal interphalangeal joint of the 5th finger. 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 Age-appropriate bony degenerative changes are seen. Soft tissues: No suspicious soft tissue calcifications. IMPRESSION: Persistent flexion of the proximal interphalangeal joint of the 5th finger. 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 Dictated by: Quincy Nogueira M.D. on 06/01/2021 at 11:06 Approved by: Quincy Nogueira M.D. on 06/01/2021 at 11:07
== END ==
PROVIDERS: Family Provider Family Medicine; PCP Family Medicine; Referring Provider Family Medicine; Visit Provider Family Medicine
DX: M24.541 Contracture, right hand (principal); M79.641 Pain in right hand; Z89.021 Acquired absence of right finger(s)
CPT/HCPCS: 73130

== ENCOUNTER → 2021-06-08 09:23 | Outpatient (CLI) | payer OTHER, SELFPAY ==
[2021-06-08 09:55] LABS: Hematocrit 45.4 % (41-53); Hemoglobin 16.1 g/dL (13.5-17.5)
[2021-06-08 10:29] LABS: BUN Creatinine Ratio 23.5 (6-22); Blood Urea Nitrogen 20 mg/dL (9-20); Calcium 9.3 mg/dL (8.4-10.2); Carbon Dioxide 29 mmol/L (22-32); Chloride 97 mmol/L (98-107); Estimated Glomerular Filt Rate > 60.0 mL/min (>60); Glucose 242 mg/dL (80-110); HEMOLYSIS < 15 (0-50); Potassium 4.9 mmol/L (3.4-5.1); Sodium 132 mmol/L (137-145)
[2021-06-08 10:30] LABS: Creatinine Urine Random 134.4 mg/dL
[2021-06-08 10:36] LABS: Protein (Total) Urine Random < 5 mg/dL (0-12); Protein Creatinine Ratio Urine 0.03 GRAM/24H
[2021-06-09 08:52] LABS: Parathyroid Hormone Int 65 pg/mL (15-65)
== END ==
PROVIDERS: Family Provider Family Medicine; PCP Family Medicine; Referring Provider Student in an Organized Health Care Education/Training Program; Visit Provider Student in an Organized Health Care Education/Training Program
DX: N05.9 Unspecified nephritic syndrome with unspecified morphologic changes (principal); R80.9 Proteinuria, unspecified; D64.9 Anemia, unspecified; N25.81 Secondary hyperparathyroidism of renal origin
CPT/HCPCS: 36415; 80048; 82570; 83970; 84156; 85014; 85018

== ENCOUNTER 2021-07-09 08:38 | Emergency (ER) | payer OTHER, SELFPAY ==
[2021-07-09 08:55] VITALS: BP 212/104; PULSE 70; RESP 15; TEMP 36.9; O2SAT 95; BMI 32.2
--- NOTE | 2021-07-09 09:01 | DI.RAD.S_ITS ---
PROCEDURE: XR FOOT RT MIN 3V INDICATIONS: foot pain TECHNIQUE: 3 views of the foot were acquired. COMPARISON: None. FINDINGS: Bones: No fractures or dislocations. No suspicious bony lesions. There are degenerative changes seen throughout, which are worst involving Lisfranc joint. A plantar calcaneal spur is seen. Toe alignment abnormalities are seen. Soft tissues: No tibiotalar joint effusion. Achilles tendon appears normal. IMPRESSION: Age-appropriate degenerative changes are seen, without an acute abnormality to explain the patient's presenting history of foot pain. Dictated by: Quincy Nogueira M.D. on 07/09/2021 at 8:13 Approved by: Quincy Nogueira M.D. on 07/09/2021 at 8:15
--- NOTE | 2021-07-09 09:12 | ED.LOWEXIN ---
HPI - Extremity Injury (Lower) General Chief Complaint: Extremity Injury, Lower Stated Complaint: Poss broken right foot Time Seen by Provider: 07/09/21 09:11 Source: patient Mode of arrival: Ambulatory History of Present Illness HPI Narrative: Patient is a 62-year-old male history of hypertension presenting with right foot pain. He states he injured it is summer ladder fell on it. He has been doing well until yesterday after 5 mi walk in the snow and cold. This morning he got up and it hurts. He denies any new injury. No numbness tingling or weakness no fevers. Related Data Home Medications Medication Instructions Recorded Confirmed aspirin 81 mg tablet,delayed 81 mg PO DAILY #0 12/27/10 02/22/21 release multivitamin 1 tab PO QDAY #0 12/27/10 02/22/21 cinnamon bark 1 dose PO DIRECTED #0 08/03/17 02/22/21 flaxseed oil 1,000 mg capsule 1,000 mg PO DAILY 03/03/19 02/22/21 Previous Rx's Medication Instructions Recorded lisinopril 20 mg tablet 20 mg PO BID #180 tab 07/25/20 varenicline 0.5 mg (11)-1 mg (42) See Rx Instructions PO PER PKG DIR 08/20/20 tablets in a dose pack (Chantix #53 ea Starting Month Box) varenicline 1 mg tablet (Chantix 1 mg PO BID #56 tab 08/20/20 Continuing Month Box) verapamil 240 mg tablet,extended See Rx Instructions .ROUTE 10/17/20 release .COMPLEX #90 tab azithromycin 250 mg tablet See Rx Instructions PO .COMPLEX #6 02/22/21 tab metoprolol tartrate 50 mg tablet 50 mg PO BID #180 tab 04/01/21 gabapentin 300 mg capsule See Rx Instructions .ROUTE 06/18/21 .COMPLEX #270 cap hydrochlorothiazide 25 mg tablet 25 mg PO BID #180 tab 06/18/21 Allergies Allergy/AdvReac Type Severity Reaction Status Date / Time No Known Drug Allergies Allergy Verified 07/09/21 09:02 Review of Systems Review of Systems Narrative: GENERAL: Denies chills,fever HEENT: Denies throat pain RESPIRATORY: Denies dyspnea, cough, wheezing CARDIOVASCULAR: Denies chest pain, palpitations GASTROINTESTINAL: Denies nausea, vomiting MUSCULOSKELETAL: See HPI SKIN: No rash, no laceration, no pruritus NEUROLOGIC: Denies weakness, dizziness, headache, numbness 8 point review of systems is negative except for those stated above and HPI Patient History Medical History (Updated 07/09/21 @ 09:23 by Sally Kraft DO) Bradycardia Colon polyps (Unknown) Diabetes (Unknown) Hyperlipemia (Unknown) Hypertension (Unknown) Low back pain (Unknown) Obstructive sleep apnea (Unknown) Peripheral neuropathy (Unknown) Presence of artificial eye (Unknown) Restless leg syndrome (Unknown) Right hand pain Seborrheic keratoses Skin cancer (Unknown) Strain of knee and leg, left Tobacco abuse Surgical History No pertinent past surgical history Family History Father No problems noted. Mother No problems noted. Social History Smoking Status: Current some day smoker Tobacco: How many years used: 30 alcohol intake: never substance use type: does not use Smoking Status: Current some day smoker alcohol intake frequency: holidays/special occasions only Substance Use Type: does not use Exam Initial Vital Signs Initial Vital Signs: Vital Signs Temperature 98.4 F 07/09/21 08:55 Pulse Rate 70 07/09/21 08:55 Respiratory Rate 15 07/09/21 08:55 Blood Pressure 212/104 H 07/09/21 08:55 Pulse Oximetry 95 07/09/21 08:55 GENERAL: Alert male 65 no acute distress CARDIOVASCULAR: peripheral pulses in tact, cap refill <2 sec RESPIRATORY: No respiratory distress, speaks in full sentences without difficulty EXTREMITIES: Normal range of motion, no clubbing or edema. Neurovascularly intact. Right foot no gross bony deformities distal pedal pulse intact tender of her great toe no significant erythema NEUROLOGICAL: Cranial nerves II through XII grossly intact. Normal gait and speech. SKIN: Warm, dry, no petechiae, no rashes or lesions. Course Orders Ordered: ED Orders 07/09/21 09:01 XR foot RT min 3V Stat Vital Signs Vital signs: Vital Signs - 8 hr 07/09/21 08:55 Temperature 98.4 F Pulse Rate 70 Respiratory Rate 15 Blood Pressure 212/104 H Pulse Oximetry 95 MDM - Extremity Injury (Lower) Imaging Data Extremity x-ray #1: Radiologist's Impression: PROCEDURE:? XR FOOT RT MIN 3V ? INDICATIONS:? foot pain ? TECHNIQUE:? 3 views of the foot were acquired.? ? COMPARISON:? None. ? FINDINGS:? ? Bones:? No fractures or dislocations.? No suspicious bony lesions.? ? There are degenerative changes seen throughout, which are worst involving Lisfranc joint. A plantar calcaneal spur is seen.? Toe alignment abnormalities are seen.? ? Soft tissues:? No tibiotalar joint effusion.? Achilles tendon appears normal.? ? ? IMPRESSION:? Age-appropriate degenerative changes are seen, without an acute abnormality to explain the patient's presenting history of foot pain. ? ? Dictated by: Quincy Nogueira M.D. on 07/09/2021 at 8:13 ? ? Discharge Plan Departure Patient Disposition: Home Clinical Impression: Acute pain of right foot Instructions: DI for Foot Pain Activity Restrictions/Additional Instructions: *You have been diagnosed with right foot pain *What to do: At this time x-ray does not show any fracture. Recommend ice elevation. Ambulate as tolerated use crutches if needed *Continue to take medications as directed Tylenol 1000 mg every 6 hours if needed for [id number] pain *Follow up with your primary care provider in 2-3 days or call [phone] *Return to ER if you should have any new, worsening or concerning symptoms Prescriptions: No Action azithromycin 250 mg tablet See Rx Instructions PO .COMPLEX Qty: 6 0RF Rx Instructions: take 500 mg today (day 1), then 250 mg for 4 days (days 2-5) PO multivitamin Tablet 1 tab PO QDAY Qty: 0 0RF aspirin 81 mg Tablet,Delayed Release (Dr/Ec) 81 mg PO DAILY Qty: 0 0RF cinnamon bark 1 dose PO DIRECTED Qty: 0 0RF Chantix Starting Month Box 0.5 mg (11)- 1 mg (42) tablets,dose pack See Rx Instructions PO PER PKG DIR Qty: 53 0RF Rx Instructions: PO PER PKG DIR Chantix Continuing Month Box 1 mg tablet 1 mg PO BID Qty: 56 1RF verapamil 240 mg tablet extended release See Rx Instructions .ROUTE .COMPLEX Qty: 90 2RF Dose Instruction: TAKE ONE TABLET BY MOUTH ONE TIME DAILY AT BEDTIME Rx Instructions: TAKE ONE TABLET BY MOUTH ONE TIME DAILY AT BEDTIME metoprolol tartrate 50 mg tablet 50 mg PO BID Qty: 180 1RF hydrochlorothiazide 25 mg tablet 25 mg PO BID Qty: 180 1RF gabapentin 300 mg capsule See Rx Instructions .ROUTE .COMPLEX Qty: 270 1RF Dose Instruction: TAKE 3 CAPSULES (900MG) BY MOUTH EVERY MORNING Rx Instructions: TAKE 3 CAPSULES (900MG) BY MOUTH EVERY MORNING flaxseed oil 1,000 mg capsule 1,000 mg PO DAILY 0RF lisinopril 20 mg tablet 20 mg PO BID Qty: 180 3RF Referrals: Parveen Fortune, [Primary Care Provider] - Stand Alone Forms: Work Release Note
== END 2021-07-09 09:37 | disposition home or self-care (01) ==
PROVIDERS: Emergency Provider Emergency Medicine; Family Provider Family Medicine; PCP Family Medicine
DX: M79.671 Pain in right foot (principal); F17.200 Nicotine dependence, unspecified, uncomplicated
CPT/HCPCS: 73630; 99281; 99283

== ENCOUNTER → 2021-10-23 09:22 | Outpatient (CLI) | payer OTHER, SELFPAY ==
[2021-10-23 10:25] LABS: Add Manual Diff / Slide Review NO; Basophils Absolute Auto 100 /uL (0-100); Basophils Percent Auto 0.8 % (0-2); Eosinophils Absolute Auto 200 /uL (0-450); Eosinophils Percent Auto 2.6 % (2-4); Hemoglobin 16.5 g/dL (13.5-17.5); Lymphocytes Absolute Auto 2600 /uL (1100-4500); Lymphocytes Percent Auto 35.9 % (25-40); Mean Corpuscular HGB Conc 35.1 % (30-36); Mean Corpuscular Hemoglobin 32.6 PG (26-34); Mean Corpuscular Volume 92.9 fL (80-100); Monocytes Absolute Auto 700 /uL (0-900); Monocytes Percent Auto 9.2 % (3-14); Neutrophils Absolute Auto 3800 /uL (1500-7000); Neutrophils Percent Auto 51.5 % (50-75); Platelet Count 192 X10^3/uL (150-400); Red Blood Cell Count 5.06 X10^6/uL (4.5-5.9); Red Cell Distribution Width 12.9 % (11.6-14.8); White Blood Cell Count 7.3 X10^3/uL (4.5-11.0)
[2021-10-23 10:32] LABS: Hemoglobin A1C% w Est Avg Glu 7.2 % (4.0-6.0)
[2021-10-23 10:42] LABS: Alanine Aminotransferase 96 IU/L (<50); Albumin 3.9 g/dL (3.5-5.0); Albumin Globulin Ratio 1.4 (1.0-2.8); Alkaline Phosphatase 82 U/L (38-126); Aspartate Aminotransferase 72 IU/L (17-59); BUN Creatinine Ratio 24.5 (6-22); Bilirubin Total 0.8 mg/dL (0.2-1.3); Blood Urea Nitrogen 23 mg/dL (9-20); Calcium 8.8 mg/dL (8.4-10.2); Carbon Dioxide 24 mmol/L (22-32); Chloride 106 mmol/L (98-107); Cholesterol 199 mg/dL (140-199); Estimated Glomerular Filt Rate > 60 mL/min (>60); Globulin 2.8 g/dL (1.7-4.1); Glucose 165 mg/dL (80-110); HDL Cholesterol 33 mg/dL (40-60); HEMOLYSIS < 15 (0-50); LDL Cholesterol Calculated 117 mg/dL (<100); Potassium 4.6 mmol/L (3.4-5.1); Sodium 137 mmol/L (137-145); Total Protein 6.7 g/dL (6.3-8.2); Triglycerides 245 mg/dL (35-150)
== END ==
PROVIDERS: Family Provider Family Medicine; PCP Family Medicine; Referring Provider Internal Medicine Cardiovascular Disease; Visit Provider Internal Medicine Cardiovascular Disease
DX: E78.5 Hyperlipidemia, unspecified (principal); E11.9 Type 2 diabetes mellitus without complications; I15.2 Hypertension secondary to endocrine disorders; E11.65 Type 2 diabetes mellitus with hyperglycemia; I10 Essential (primary) hypertension
CPT/HCPCS: 80053; 80061; 83036; 85025

== ENCOUNTER → 2022-06-11 09:37 | Outpatient (CLI) | payer OTHER, SELFPAY ==
[2022-06-11 10:24] LABS: Hemoglobin A1C% w Est Avg Glu 6.3 % (4.0-6.0)
[2022-06-11 10:54] LABS: Creatinine Urine Random 304.7 mg/dL
[2022-06-11 10:58] LABS: Microalbumi Creatinin Ratio Ur 14.4 ug/mg CR (<30); Microalbumin Urine Random 4.4 mg/dL (0-1.6)
[2022-06-11 10:59] LABS: Alanine Aminotransferase 61 IU/L (<50); Albumin 3.6 g/dL (3.5-5.0); Albumin Globulin Ratio 1.4 (1.0-2.8); Alkaline Phosphatase 78 U/L (38-126); Aspartate Aminotransferase 37 IU/L (17-59); BUN Creatinine Ratio 16.7 (6-22); Blood Urea Nitrogen 17 mg/dL (9-20); Calcium 9.2 mg/dL (8.4-10.2); Carbon Dioxide 27 mmol/L (22-32); Chloride 104 mmol/L (98-107); Cholesterol 137 mg/dL (140-199); Estimated Glomerular Filt Rate > 60 mL/min (>60); Globulin 2.5 g/dL (1.7-4.1); Glucose 187 mg/dL (80-110); HDL Cholesterol 32 mg/dL (40-60); HEMOLYSIS < 15 (0-50); LDL Cholesterol Calculated 64 mg/dL (<100); Potassium 5.7 mmol/L (3.4-5.1); Sodium 138 mmol/L (137-145); Total Protein 6.1 g/dL (6.3-8.2); Triglycerides 204 mg/dL (35-150)
== END ==
PROVIDERS: Family Provider Family Medicine; PCP Family Medicine; Referring Provider Family Medicine; Visit Provider Family Medicine
DX: E11.65 Type 2 diabetes mellitus with hyperglycemia (principal); E78.5 Hyperlipidemia, unspecified; I10 Essential (primary) hypertension
CPT/HCPCS: 36415; 80053; 80061; 82043; 82570; 83036

== ENCOUNTER → 2022-07-15 09:41 | Outpatient (CLI) | payer OTHER, SELFPAY ==
[2022-07-15 10:19] LABS: Hematocrit 44.6 % (41-53); Hemoglobin 15.5 g/dL (13.5-17.5)
[2022-07-15 10:50] LABS: BUN Creatinine Ratio 18.1 (6-22); Blood Urea Nitrogen 17 mg/dL (9-20); Calcium 8.8 mg/dL (8.4-10.2); Carbon Dioxide 26 mmol/L (22-32); Chloride 101 mmol/L (98-107); Estimated Glomerular Filt Rate > 60 mL/min (>60); Glucose 158 mg/dL (80-110); HEMOLYSIS < 15 (0-50); Potassium 4.4 mmol/L (3.4-5.1); Sodium 137 mmol/L (137-145)
[2022-07-15 10:58] LABS: Creatinine Urine Random 179.1 mg/dL
[2022-07-15 11:01] LABS: Protein (Total) Urine Random < 5 mg/dL (0-12); Protein Creatinine Ratio Urine 0.02 GRAM/24H
[2022-07-15 11:35] LABS: Vitamin B12 338 pg/mL (239-931)
[2022-07-16 10:26] LABS: Parathyroid Hormone Int 55 pg/mL (15-65)
== END ==
PROVIDERS: Family Provider Family Medicine; PCP Family Medicine; Referring Provider Student in an Organized Health Care Education/Training Program; Visit Provider Student in an Organized Health Care Education/Training Program
DX: N05.9 Unspecified nephritic syndrome with unspecified morphologic changes (principal); D64.9 Anemia, unspecified; N25.81 Secondary hyperparathyroidism of renal origin; R80.9 Proteinuria, unspecified
CPT/HCPCS: 36415; 80048; 82570; 82607; 83970; 84156; 85014; 85018

== ENCOUNTER → 2022-08-15 08:37 | Outpatient (CLI) | payer OTHER, SELFPAY ==
--- NOTE | 2022-08-15 08:38 | DI.RAD.S_ITS ---
PROCEDURE: XR FOOT RT MIN 3V INDICATIONS: RIGHT FOOT PAIN TECHNIQUE: 3 views of the foot were acquired. COMPARISON: [facility], , XR FOOT RT MIN 3V, 07/09/2021, 9:01. FINDINGS: Bones: No fractures or dislocations. No suspicious bony lesions. Degenerative changes are unchanged. Mild hallux valgus angulation of the great toe. No erosions or evidence of inflammatory arthropathy. Soft tissues: No tibiotalar joint effusion. Achilles tendon appears normal. IMPRESSION: 1. No acute abnormality. 2. Background degenerative changes with no interval change. Dictated by: Goyo Hernandez M.D. on 08/15/2022 at 9:11 Approved by: Goyo Hernandez M.D. on 08/15/2022 at 9:13
== END ==
PROVIDERS: Family Provider Family Medicine; PCP Family Medicine; Referring Provider Family Medicine; Visit Provider Family Medicine
DX: M79.671 Pain in right foot (principal); M20.11 Hallux valgus (acquired), right foot
CPT/HCPCS: 73630

== ENCOUNTER → 2023-07-22 09:08 | Outpatient (CLI) | payer MEDICARE, OTHER, SELFPAY ==
[2023-07-22 10:41] LABS: Hemoglobin A1C% w Est Avg Glu 6.9 % (4.0-6.0)
== END ==
PROVIDERS: Family Provider Family Medicine; PCP Family Medicine; Referring Provider Family Medicine; Visit Provider Family Medicine
DX: E11.65 Type 2 diabetes mellitus with hyperglycemia (principal)
CPT/HCPCS: 36415; 83036

== ENCOUNTER → 2023-09-22 08:32 | Outpatient (CLI) | payer MEDICARE, OTHER, SELFPAY ==
[2023-09-22 09:05] LABS: Hematocrit 43.5 % (41-53); Hemoglobin 15.6 g/dL (13.5-17.5)
[2023-09-22 09:26] LABS: BUN Creatinine Ratio 19.2 (6-22); Blood Urea Nitrogen 19 mg/dL (9-20); Calcium 8.9 mg/dL (8.4-10.2); Carbon Dioxide 27 mmol/L (22-32); Chloride 105 mmol/L (98-107); Estimated Glomerular Filt Rate > 60 mL/min (>60); Glucose 165 mg/dL (80-110); HEMOLYSIS < 15 (0-50); Potassium 4.9 mmol/L (3.4-5.1); Sodium 136 mmol/L (137-145)
[2023-09-22 10:10] LABS: Creatinine Urine Random 224.6 mg/dL
[2023-09-22 10:11] LABS: Protein (Total) Urine Random < 5 mg/dL (0-12); Protein Creatinine Ratio Urine 0.02 GRAM/24H
[2023-09-23 16:40] LABS: Parathyroid Hormone Int 69 pg/mL (15-65)
== END ==
LOC: LAB 08:33
PROVIDERS: Family Provider Family Medicine; PCP Family Medicine; Referring Provider Student in an Organized Health Care Education/Training Program; Visit Provider Student in an Organized Health Care Education/Training Program
DX: N05.9 Unspecified nephritic syndrome with unspecified morphologic changes (principal); D70.9 Neutropenia, unspecified; D63.1 Anemia in chronic kidney disease; N25.81 Secondary hyperparathyroidism of renal origin; R80.9 Proteinuria, unspecified
CPT/HCPCS: 36415; 80048; 82570; 83970; 84156; 85014; 85018

== ENCOUNTER → 2023-12-10 05:51 | Outpatient (CLI) | payer MEDICARE, OTHER, SELFPAY ==
[2023-12-10 08:24] LABS: Hemoglobin A1C% w Est Avg Glu 6.6 % (4.0-6.0)
[2023-12-10 08:37] LABS: Alanine Aminotransferase 75 IU/L (<50); Albumin Globulin Ratio 1.8 (1.0-2.8); Alkaline Phosphatase 82 U/L (38-126); Aspartate Aminotransferase 60 IU/L (17-59); BUN Creatinine Ratio 22.9 (6-22); Bilirubin Total 1.4 mg/dL (0.2-1.3); Blood Urea Nitrogen 22 mg/dL (9-20); Calcium 9.2 mg/dL (8.4-10.2); Carbon Dioxide 28 mmol/L (22-32); Chloride 105 mmol/L (98-107); Cholesterol 199 mg/dL (140-199); Estimated Glomerular Filt Rate > 60 mL/min (>60); Globulin 2.2 g/dL (1.7-4.1); Glucose 173 mg/dL (80-110); HDL Cholesterol 38 mg/dL (40-60); HEMOLYSIS < 15 (0-50); LDL Cholesterol Calculated 104 mg/dL (<100); Potassium 5.3 mmol/L (3.4-5.1); Sodium 138 mmol/L (137-145); Total Protein 6.2 g/dL (6.3-8.2); Triglycerides 283 mg/dL (35-150)
[2023-12-10 08:58] LABS: Prostate Specific Antigen 1.31 ng/mL (0.10-4.00)
== END ==
LOC: LAB 05:52
PROVIDERS: Family Provider Family Medicine; PCP Family Medicine; Referring Provider Family Medicine; Visit Provider Family Medicine
DX: E11.65 Type 2 diabetes mellitus with hyperglycemia (principal); E78.5 Hyperlipidemia, unspecified; I10 Essential (primary) hypertension; Z12.5 Encounter for screening for malignant neoplasm of prostate
CPT/HCPCS: 36415; 80053; 80061; 83036; 84153

== ENCOUNTER → 2024-06-01 08:33 | Outpatient (CLI) | payer MEDICARE, OTHER, SELFPAY ==
[2024-06-01 10:32] LABS: Hemoglobin A1C% w Est Avg Glu 7.1 % (4.0-6.0)
[2024-06-01 11:27] LABS: Alanine Aminotransferase 65 IU/L (<50); Albumin 3.8 g/dL (3.5-5.0); Albumin Globulin Ratio 1.6 (1.0-2.8); Alkaline Phosphatase 74 U/L (38-126); Aspartate Aminotransferase 48 IU/L (17-59); BUN Creatinine Ratio 15.9 (6-22); Bilirubin Total 1.2 mg/dL (0.2-1.3); Blood Urea Nitrogen 17 mg/dL (9-20); Calcium 9.7 mg/dL (8.4-10.2); Carbon Dioxide 26 mmol/L (22-32); Chloride 104 mmol/L (98-107); Cholesterol 155 mg/dL (140-199); Estimated Glomerular Filt Rate > 60 mL/min (>60); Globulin 2.4 g/dL (1.7-4.1); Glucose 187 mg/dL (80-110); HDL Cholesterol 34 mg/dL (40-60); HEMOLYSIS < 15 (0-50); LDL Cholesterol Calculated 78 mg/dL (<100); Potassium 5.2 mmol/L (3.4-5.1); Sodium 136 mmol/L (137-145); Total Protein 6.2 g/dL (6.3-8.2); Triglycerides 216 mg/dL (35-150)
== END ==
PROVIDERS: PCP Family Medicine; Referring Provider Family Medicine; Visit Provider Family Medicine
DX: E11.65 Type 2 diabetes mellitus with hyperglycemia (principal); E78.5 Hyperlipidemia, unspecified; I10 Essential (primary) hypertension
CPT/HCPCS: 36415; 80053; 80061; 83036

== ENCOUNTER → 2024-11-22 08:58 | Outpatient (CLI) | payer MEDICARE, OTHER, SELFPAY ==
[2024-11-22 10:19] LABS: Hemoglobin A1C% w Est Avg Glu 7.1 % (4.0-6.0)
[2024-11-22 10:32] LABS: Creatinine Urine Random 110.02 mg/dL
[2024-11-22 10:33] LABS: Alanine Aminotransferase 55 IU/L (<50); Albumin 3.8 g/dL (3.5-5.0); Albumin Globulin Ratio 1.7 (1.0-2.8); Alkaline Phosphatase 74 U/L (38-126); Aspartate Aminotransferase 44 IU/L (17-59); BUN Creatinine Ratio 17.2 (6-22); Bilirubin Total 1.4 mg/dL (0.2-1.3); Blood Urea Nitrogen 15 mg/dL (9-20); Calcium 9.2 mg/dL (8.4-10.2); Carbon Dioxide 25 mmol/L (22-32); Chloride 103 mmol/L (98-107); Cholesterol 149 mg/dL (140-199); Estimated Glomerular Filt Rate > 60 mL/min (>60); Globulin 2.3 g/dL (1.7-4.1); Glucose 157 mg/dL (70-99); HDL Cholesterol 35 mg/dL (40-60); HEMOLYSIS < 15 (0-50); LDL Cholesterol Calculated 77 mg/dL (<100); Sodium 134 mmol/L (137-145); Total Protein 6.1 g/dL (6.3-8.2); Triglycerides 183 mg/dL (35-150)
[2024-11-22 10:37] LABS: Microalbumin Urine Random 2.3 mg/dL (0-1.6)
== END ==
PROVIDERS: PCP Family Medicine; Referring Provider Family Medicine; Visit Provider Family Medicine
DX: E11.65 Type 2 diabetes mellitus with hyperglycemia (principal); E78.5 Hyperlipidemia, unspecified; I10 Essential (primary) hypertension
CPT/HCPCS: 36415; 80053; 80061; 82043; 82570; 83036

== ENCOUNTER → 2025-02-10 11:28 | Outpatient (CLI) | payer MEDICARE, OTHER, SELFPAY ==
--- NOTE | 2025-02-10 11:30 | DI.CT.S_ITS ---
PROCEDURE: CT LUNG LOW DOSE SCREENING INDICATIONS: Current smoker TECHNIQUE: Noncontrast 2.0-2.5 mm thick sections acquired from the pulmonary apices to the posterior costophrenic angles. 7 mm thick axial MIP, and 5 mm coronal and sagittal reformats were then acquired. For radiation dose reduction, the following was used: automated exposure control, adjustment of mA and/or kV according to patient size. COMPARISON: None. FINDINGS: Image quality: Diagnostic. Lower Neck: No enlarged lymph nodes. Thyroid: No thyroid nodules which require sonographic follow up, per consensus guidelines. Axillae: No enlarged lymph nodes. Chest Wall: Mild bilateral gynecomastia. Bones: No acute vertebral body compression fractures. Multilevel spondylitic changes throughout the imaged spine. No suspicious osseous lesions. Lungs and Pleura: No pneumothorax or pleural effusions. Mild upper lobe predominant pulmonary emphysematous changes. Visualized airways are clear. No septal thickening or nodularity. No suspicious pulmonary nodules identified. Heart: Heart size is normal. No pericardial effusion. Multivessel atherosclerotic calcifications of the coronary arteries. Thoracic Vessels: The aorta and pulmonary arteries demonstrate normal size. Atherosclerotic calcifications of the aortic arch are present. Mediastinum and [place]: No enlarged lymph nodes. Esophagus: No wall thickening. No hiatal hernia. Upper Abdomen: Visualized upper abdomen solid organs and bowel loops appear normal. IMPRESSION: No suspicious pulmonary nodules. Mild upper lobe predominant pulmonary emphysema. LUNG-RADS 1; continued annual screening, if eligible. Clinically Significant Non-pulmonary Findings: Significant coronary artery atherosclerotic calcifications. Correlate with risk factors and symptoms, and advise counseling. Dictated by: Shyam Howard M.D. on 02/10/2025 at 16:29 Approved by: Shyam Howard M.D. on 02/10/2025 at 16:33
--- NOTE | 2025-02-10 11:30 | DI.US.S_ITS ---
PROCEDURE: US ABD AORTA ANEURYSM SCREEN INDICATIONS: current smoker TECHNIQUE: Real time scanning was performed of the aorta and iliac arteries, with image documentation. COMPARISON: [facility], CT, CT LUNG LOW DOSE SCREENING, 02/10/2025, 11:35. FINDINGS: Aorta: Proximal aortic diameter measures 2.8 cm. Mid-aorta measures 2.1 cm. Distal aortic diameter is 2.2 cm. Iliac arteries: Right common iliac artery measures 1.3 cm. Left common iliac artery measures 1.3 cm. Prominent fatty infiltration is seen throughout the liver but there is a region of 5.0 x 4.6 x 4.1 cm lower echogenicity of indeterminate etiology but potentially focal sparing from otherwise diffuse fatty infiltration. This is located near the intrahepatic IVC superiorly. That area is poorly assessed by noncontrast screening CT for early detection of lung carcinoma performed same day. IMPRESSION: No aortic aneurysm found, no area of aortic stenosis identified. Prominent fatty infiltration throughout the liver except for lower echogenicity near the intrahepatic IVC superiorly, measuring up to 5.0 cm. Please correlate for etiology of hepatic steatosis. Also, a clinical decision is necessary regarding whether contrast-enhanced CT scanning is warranted to assess the hepatic area of low echogenicity, versus sonographic follow-up. Dictated by: Kwaku Shea M.D. on 02/10/2025 at 14:23 Approved by: Kwaku Shea M.D. on 02/10/2025 at 14:28
== END ==
LOC: US 11:29
PROVIDERS: PCP Family Medicine; Referring Provider Family Medicine; Visit Provider Family Medicine
DX: F17.210 Nicotine dependence, cigarettes, uncomplicated (principal); J43.9 Emphysema, unspecified
CPT/HCPCS: 71271; 76706

== ENCOUNTER → 2025-06-06 08:15 | Outpatient (CLI) | payer MEDICARE, OTHER, SELFPAY ==
[2025-06-06 09:20] LABS: Alanine Aminotransferase 69 IU/L (<50); Albumin 4.0 g/dL (3.5-5.0); Albumin Globulin Ratio 1.5 (1.0-2.8); Alkaline Phosphatase 87 U/L (38-126); Blood Urea Nitrogen 19 mg/dL (9-20); Calcium 9.5 mg/dL (8.4-10.2); Carbon Dioxide 20 mmol/L (22-32); Chloride 106 mmol/L (98-107); Cholesterol 143 mg/dL (140-199); Estimated Glomerular Filt Rate > 60 mL/min (>60); Globulin 2.6 g/dL (1.7-4.1); Glucose 204 mg/dL (70-99); HDL Cholesterol 35 mg/dL (40-60); HEMOLYSIS < 15 (0-50); Potassium 4.3 mmol/L (3.4-5.1); Sodium 138 mmol/L (137-145); Total Protein 6.6 g/dL (6.3-8.2); Triglycerides 292 mg/dL (35-150)
[2025-06-06 09:38] LABS: Hemoglobin A1C% w Est Avg Glu 7.6 % (4.0-6.0)
[2025-06-06 09:47] LABS: TSH w/ Reflex to FT4 1.91 uIU/mL (0.47-4.68)
== END ==
PROVIDERS: PCP Family Medicine; Referring Provider Family Medicine; Visit Provider Family Medicine
DX: Z12.5 Encounter for screening for malignant neoplasm of prostate (principal); E11.65 Type 2 diabetes mellitus with hyperglycemia; E78.2 Mixed hyperlipidemia; C61 Malignant neoplasm of prostate
CPT/HCPCS: 36415; 80053; 80061; 83036; 84443; G0103

== ENCOUNTER → 2025-07-04 09:26 | Outpatient (CLI) | payer MEDICARE, OTHER, SELFPAY ==
--- NOTE | 2025-07-04 13:47 | ST.SWALLOW ---
Visit Care Team Role Provider Type Parveen Fortune DO Attending Provider Physician Primary Care Provider Referring Provider Specialty: Family Practice Address: [address] [place] [address], [facility] Email: [email or web address] Modified Barium Swallow Study CLIENT EXECUTIVE Modified Barium Swallow Study Start: 07/04/25 12:47 Freq: Status: Active Protocol: Document 07/04/25 12:47 LNK (Rec: 07/04/25 13:47 LNK Desktop) Modified Barium Swallow Study Total Time Visit Start Time 10:00 Total Visit Minutes 1,045 Visit Information Visit Number 45 Referral Referring Physician Parveen Fortune DO Reason for Referral dysphagia Setting Setting Outpatient Care Patient Information Identification Type Date of Patient History Pt was seen for a Modified Barium Swallow Study with c /o difficulty swallowing foods and liquids. Pt described his swallow as stuff is not swallowed, reporting a sense of food/liquids stuck in his throat with regurgitation of food/liquid at times. Some of the regurgitated food tastes like acid and some just seems to be undigested. He was concerned he may be eating too fast. Additionally, he reported feeling like he needs to push the food down. Pt has a PMH that includes GERD, dysphagia, diabetes and tobacco use (pt reports he does not use tobacco at this time). He denied any neurological diagnoses or head/neck surgery/injury. Pt noted he is scheduled for an EGD tomorrow, 07/05/25. Subjective Pt was seated in the flouroscopy chair with directions Observations and procedures explained for him. He indicated he understood and agreed to proceed. Patient Positioning Position View Lat-A/P Imaging Lateral View Textures Administered Trials Presented Thin Liquid via Spoon (IDDSI 0),Thin Liquid via Cup ( IDDSI 0),Extremely Thick Liquid via Spoon (IDDSI 4), Regular (IDDSI 7) Barium Tablet Yes The IDDSI Framework Protocol: IDDSI.1 Oral Impairment Source: The Modified Barium Swallow Impairment Profile (MBSImP??) Lip Closure Interlabial escape; no progression to anterior lip Tongue Control Cohesive bolus between tongue to palatal seal During Bolus Hold Bolus Preparation/ Timely & efficient chewing & mashing Mastication Bolus Transport/ Brisk tongue motion Lingual Motion Oral Residue Trace residue lining oral structures,Residue collection on oral structures Location Tongue,Lateral sulci Initiation of Bolus head at posterior laryngeal surface of epiglottis Pharyngeal Swallow Additional Oral *OME and DKS were observed to be WNL. Impairment *Dentition natural and in good hygiene Observations *Mastication observed with rotary chew pattern. *Good bolus formation, control and AP transition. *Velopharyngeal closure was WNL. Oral phase of swallow observed to be WNL Pharyngeal Impairment Source: The Modified Barium Swallow Impairment Profile (MBSImP??) Soft Palate No bolus between soft palate & pharyngeal wall Elevation Laryngeal Elevation Part.sup.move.thyroid cart/part.approx.arytenoids to epiglot.petiole Anterior Hyoid Partial anterior movement Excursion Epiglottic Movement Complete inversion Laryngeal Vestibular Complete; no air/contrast in laryngeal vestibule Closure Pharyngeal Stripping Present - complete Wave Pharyngoesophageal Complete distention & complete duration; no obstruction Segment Opening of flow Tongue Base Narrow column of contrast/air betwn tongue base & post. Retraction pharyngeal wall Pharyngeal Residue Collection of residue within/on pharyngeal structures Location Diffuse (>3 areas) Additional *Hyoid/laryngeal elevation and movement were mildly Pharyngeal reduced Impairment *Epiglottic inversion was noted to be adequate Observations *Tongue base retraction strength was mildly reduced resulting in pharyngeal residue. *Pharyngeal stripping wave and cricopharyngeal opening appeared adequate and did not appear to impede bolus flow. *Post-swallow residue was diffuse; primarily at the base of tongue, valleculae and pyriform sinuses across trials. Pt did sensate to residue and independently cleared with subsequent swallows. *No laryngeal penetration or aspiration was observed. *Mild pharyngeal phase dysphagia. A/P View Textures Administered Trials Presented Thin Liquid via Cup (IDDSI 0) The IDDSI Framework Protocol: IDDSI.1 A/P View Observations Pharyngeal Complete Contraction Esophageal Clearance Esophageal retention Upright Position Vocal Fold Function Good Esophageal Function Stasis Additional A-P *Esophageal retention of the calibrated barium tablet Observations observed. *With thin barium, the esophagus was observed to clear in a timely manner. A small, circular bulge was noted proximal to the LES. The barium tablet stopped at this location. Several swallows of water did not clear the tablet. *The MBSS was stopped with the tablet remaining in the lower esophagus. Clinical Impressions Dysphagia Type Pharyngeal,Esophageal Findings The pt presented with mild pharyngeal phase dysphagia characterized by reduced hyolaryngeal elevation and base of tongue strength, which resulted in diffuse pharyngeal pooling. Pt did sensate to the pooling ad spontaneously swallowed, clearing the pharynx. The esophageal phase cleared for thin barium liquid. A small bulge in the esophagus was noted near the LES (? small hiatal hernia?). The calibrated tablet stopped near the bulge. Additional swallows of water did not clear the tablet to the stomach. The MBSS was stopped before the tablet cleared to the stomach. Pt is scheduled for EGD 07/05/25. The above results and recommendations of the MBSS were described to the pt while observing still pictures taken during the MBSS. Pt expressed appreciation and indicated she understood. All pt questions were addressed. Rehabilitation Good Potential Patient Appropriate Yes: Base of tongue exercises for Therapy Recommendations Diet Comments No change in diet at this time Treatment Plan Therapy Outpatient Speech Therapy,Base of Tongue Exercises Recommendations
== END ==
LOC: RAD 09:27
PROVIDERS: PCP Family Medicine; Referring Provider Family Medicine; Visit Provider Family Medicine
DX: R13.10 Dysphagia, unspecified (principal)
CPT/HCPCS: 74230; 92611